=== PATIENT | female | born 2000 | race Caucasian/White ===

== ENCOUNTER 2022-09-13 20:00 | Observation (INO) | payer BC ==
[~2022-09-13] VITALS: Ht 157.5 cm; Wt 80.3 kg
[2022-09-13] MEDS ORDERED: TERBUTALINE 1 MG/ML VIAL SUBQ SCH (23:05)
[2022-09-13] MEDS ORDERED: TERBUTALINE 1 MG/ML VIAL SUBQ ONE (23:20)
[2022-09-14] MEDS ORDERED: PNV1TABL5 PO (00:53)
== END 2022-09-14 01:10 | disposition home or self-care (01) ==
LOC: MLD 20:00
PROVIDERS: ADMIT Obstetrics & Gynecology; ATTEND Obstetrics & Gynecology
DX: Z04.1 Encounter for examination and observation following transport accident (principal); Z3A.34 34 weeks gestation of pregnancy; V49.9XXA Car occupant (driver) (passenger) injured in unspecified traffic accident, initial encounter; Y93.89 Activity, other specified; Y92.89 Other specified places as the place of occurrence of the external cause
CPT/HCPCS: 59025; 76815; 81000; 96372; G0378; J3105; Q0092